=== PATIENT | female | born 1975 | race Caucasian/White ===

== ENCOUNTER → 2025-02-10 13:36 | Outpatient (REF) | payer OTHER, SELFPAY | LOC: HWWDC 13:36 | PROVIDERS: ATTENDING PHYSICIAN Internal Medicine | DX: Z12.31 Encounter for screening mammogram for malignant neoplasm of breast (principal) | CPT/HCPCS: 77063; 77067 ==

== ENCOUNTER → 2025-02-28 09:16 | Outpatient (REF) | payer OTHER, SELFPAY | LOC: WDC 09:16 | PROVIDERS: ATTENDING PHYSICIAN Internal Medicine | DX: R92.8 Other abnormal and inconclusive findings on diagnostic imaging of breast (principal) | CPT/HCPCS: 76642 ==

== ENCOUNTER → 2025-03-07 08:02 | Outpatient (REF) | payer OTHER, SELFPAY ==
--- NOTE | 2025-03-07 13:25 | OID.BR.INTR ---
[facility] Breast Navigator - Initial
- -
Date of Contact: 03/07/25
Met with patient. Patient given written information on navigator service available at [facility]. Will follow up as needed per protocol.
== END ==
LOC: WDC 08:02
PROVIDERS: ATTENDING PHYSICIAN Internal Medicine
DX: N63.22 Unspecified lump in the left breast, upper inner quadrant (principal)
CPT/HCPCS: 19083; 88305; 88341; 88342; 88360; A4648